=== PATIENT | male | born 1980 | race American Indian/Alaskan Native ===

== ENCOUNTER 2018-09-15 10:29 | Inpatient (IN) | payer OTHER ==
[2018-09-15] MEDS ORDERED: MORPHINE IV ONE (11:45)
[2018-09-15] MEDS ORDERED: NACL 0.9% 1000 ML 1,000 ML IV ONE (11:45)
[2018-09-15] MEDS ORDERED: ZOSYN/NS 4.5GM/100ML 4.5 GM/100 ML VIAL IV ONE (11:47)
[2018-09-15] MEDS ORDERED: XYLOCAINE 1% 20 mL ONE (11:56)
[2018-09-15 12:20] LABS: Mean Corpuscular Volume 88 fl (84-94); Platelet Count 277 K/mm3 (140-440); Red Blood Count 4.33 M/mm3 (3.65-5.03); Red Cell Distribution Width 18.6 % (13.2-15.2)
[2018-09-15 12:27] LABS: Hematocrit 38.3 % (35.5-45.6)
[2018-09-15 12:39] LABS: BUN/Creatinine Ratio 18; Blood Urea Nitrogen 11 mg/dL (9-20); Calcium 9.5 mg/dL (8.4-10.2); Hemolysis Index 11
--- NOTE | 2018-09-15 12:54 | Emergency Department Report ---
<ODALIS BRONSON - Last Filed: 09/15/18 14:04> - General Chief complaint: Wound/Laceration Stated complaint: L HAND INJURY/SWOLLEN Time Seen by Provider: 09/15/18 11:45 - Related Data Home Medications Medication Instructions Recorded Confirmed Last Taken No Known Home Medications [No 09/15/18 09/15/18 Unknown Reported Home Medications] Allergies Allergy/AdvReac Type Severity Reaction Status Date / Time No Known Allergies Allergy Unverified 09/15/18 10:30 Abscess Boil HPI - HPI Chief Complaint: Wound/Laceration Stated Complaint: L HAND INJURY/SWOLLEN Time Seen by Provider: 09/15/18 11:45 Home Medications: Home Medications Medication Instructions Recorded Confirmed Last Taken No Known Home Medications [No 09/15/18 09/15/18 Unknown Reported Home Medications] Allergies/Adverse Reactions: Allergies Allergy/AdvReac Type Severity Reaction Status Date / Time No Known Allergies Allergy Unverified 09/15/18 10:30 ED Past Medical Hx - Medications Home Medications: Home Medications Medication Instructions Recorded Confirmed Last Taken Type No Known Home Medications [No 09/15/18 09/15/18 Unknown History Reported Home Medications] - I & D Left Anterior Hand Type of Procedure: Simple Site: left anterior palm Blade Size: 11 I & D Procedure: betadine prep, sterile drapes applied, sterile dressing applied, gauze wick placed Progress: Patient positioned appropriately, 5cc lidocaine without epinephrine was used as a local anesthetic. #11 blade scalpal used for single incision. Additional local anesthetic injected into surrounding viable tissue prior to blunt dissection of loculated adhesions. Copius drainage of pus. Wound packed with iodoform gauze. Procedure tolerated without complications. Wound dressed with sterile 4x4 guaze and paper tape. Pt tolerated procedure well. ED Medical Decision Making - Lab Data Result diagrams: 09/15/18 12:05 09/15/18 12:05 ED Disposition Clinical Impression: Abscess of hand, left Disposition: DC-09 OP ADMIT IP TO THIS HOSP Condition: Stable <MICH PATTEN - Last Filed: 09/15/18 15:35> - General Source: patient Mode of arrival: Ambulatory Limitations: Other - History of Present Illness Initial comments: 37-year-old male with pain and swelling to the left hand 3 days. 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 Patient states he picked the glass with nail clippers, afterward began having redness, swelling, pain in the hand. Patient denies fever. States he is right- handed. Reports tetanus immunization is up-to-date. MD complaint: abscess/boil -: days(s) (3) Location: R hand Severity: severe Quality: aching Consistency: constant Improves with: none Worsens with: palpation, movement Context: other Associated symptoms: denies other symptoms Treatments Prior to Arrival: none ED Review of Systems ROS: Stated complaint: L HAND INJURY/SWOLLEN Other details as noted in HPI Comment: All other systems reviewed and negative Constitutional: denies: chills, fever Musculoskeletal: as per HPI ED Past Medical Hx - Past Medical History Previous Medical History?: No - Surgical History Past Surgical History?: No - Social History Smoking Status: Current Every Day Smoker Substance Use Type: Marijuana ED Physical Exam - General Limitations: Other General appearance: alert, in no apparent distress - Head Head exam: Present: atraumatic, normocephalic - Eye Eye exam: Present: normal appearance - ENT ENT exam: Present: mucous membranes moist - Neck Neck exam: Present: normal inspection - Respiratory Respiratory exam: Present: normal lung sounds bilaterally. Absent: respiratory distress - Cardiovascular Cardiovascular Exam: Present: normal rhythm, tachycardia - GI/Abdominal GI/Abdominal exam: Present: soft. Absent: distended - Extremities Exam Extremities exam: Present: other (left hand is warm with with moderate swelling; erythema to base of fingers and dorsum of hand; callus-appearing lesion on palmar aspect just below the 5th digit with fluctuance and purulence underlying callus-like lesion) - Neurological Exam Neurological exam: Present: alert, oriented X3. Absent: motor sensory deficit - Psychiatric Psychiatric exam: Present: normal affect, normal mood - Skin Skin exam: Present: warm, dry, intact ED Course Vital Signs 09/15/18 09/15/18 09/15/18 10:37 11:25 13:18 Temperature 98.7 F 98.9 F Pulse Rate 118 H 96 H Respiratory 20 20 18 Rate Blood Pressure 177/120 Blood Pressure 140/80 [Left] O2 Sat by Pulse 98 100 Oximetry ED Medical Decision Making - Lab Data Result diagrams: 09/15/18 12:05 09/15/18 12:05 - Medical Decision Making 37 yo M w/ abscess to left hand. I&D performed. Significant amt of purulence drained from site. Abscess was packed w/ iodoform gauze. Pt afebrile, however, WBCs of 29.5. Vancomycin and zosyn given. Pt will be admitted to hospitalist, Dr Serrano, for further management. - Differential Diagnosis cellulitis, abscess Critical care attestation.: If time is entered above; I have spent that time in minutes in the direct care of this critically ill patient, excluding procedure time. ED Disposition Is pt being admited?: Yes Time of Disposition: 14:17
[2018-09-15 12:59] LABS: Hemoglobin 13.8 gm/dl (11.8-15.2)
[2018-09-15 13:00] LABS: Mean Corpuscular HGB Conc 37 % (32-34)
[2018-09-15 13:29] LABS: Total Cells Counted 100
[2018-09-15 13:30] LABS: Basophils % (Manual) 0 % (0.0-1.8); Eosinophils % (Manual) 0 % (0.0-4.3)
[2018-09-15 13:31] LABS: Anisocytosis Few; Platelet Estimate Consistent w Auto
[2018-09-15] MEDS ORDERED: DILAUDID IV PRN (16:27)
--- NOTE | 2018-09-15 20:34 | Event Note ---
Date: 09/15/18 Please see dictated history and physical in the reports Left hand abscess after injury with a glass piece Status post incision and drainage IV antibiotics Surgery consult
[2018-09-15] MEDS ORDERED: ZOFRAN IV PRN (20:41)
[2018-09-15] MEDS ORDERED: TYLENOL PO PRN (20:41)
[2018-09-15] MEDS ORDERED: SODIUM CHLORIDE FLUSH SYRINGE 10 ML IV PRN (20:41)
[2018-09-15] MEDS ORDERED: VANCOMYCIN PHARMACY TO DOSE IV SCH (21:00)
--- NOTE | 2018-09-15 21:04 | History and Physical Report ---
CHIEF COMPLAINT: Left hand swelling for 3-4 days. HISTORY OF PRESENT ILLNESS: The patient is a 37-year-old -[place] male with no significant past medical history, comes in for left hand swelling and pain. 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 The patient states that he took the glass with the nail clippers. After removal of the glass piece, the patient started having redness, swelling and pain in the hand. Pain in the hand is about 10 on a scale of 1-10. The patient is right handed. The patient had tetanus immunization. Left hand is swollen, especially the palm and the dorsal aspect. Also to some extent the fingers. No fever or chills. PAST MEDICAL HISTORY: Significant for none. PAST SURGICAL HISTORY: I and D in the Emergency Room for the left hand abscess. SOCIAL HISTORY: Smokes over a pack a day and marijuana occasionally. FAMILY HISTORY: Significant for hypertension. REVIEW OF SYSTEMS: Significant for left hand swelling and pain and low-grade fever. PHYSICAL EXAMINATION: GENERAL: Middle-aged male, cooperative during examination. VITAL SIGNS: Blood pressure is 177/120. The repeat blood pressure is 146/90, temperature is 98.7, pulse is 118 and respirations are 20. HEENT: Unremarkable. Pupils are equal and reactive. NECK: Supple. No lymphadenopathy and no thyromegaly. No carotid artery bruit. LUNGS: Clear to auscultation and percussion. Good air entry. CARDIOVASCULAR: S1, S2 heard. No gallop, no murmur, no rub. Apical impulse in left fifth intercostal space and midclavicular line. ABDOMEN: Soft and benign. No hepatosplenomegaly, no guarding, no rigidity. CENTRAL NERVOUS SYSTEM: Alert and oriented x 4, nonfocal exam. EXTREMITIES: Good pedal pulses. Left hand is swollen both the palmar aspect and the dorsal aspect. Severe tenderness is present. Erythema present on the left hand. LABORATORY DATA: Significant for white count of 29,500, hemoglobin and hematocrit of 13.8 and 38.3, platelet count is 277,000. Sodium is 138, potassium is 4.0, chloride is 101, bicarb is 26, BUN and creatinine 11 and 0.6, glucose is 116. ASSESSMENT AND PLAN: 1. Left hand abscess. The patient had incision and drainage done in the Emergency Room by the nurse practitioner. A 20 mL of pus was drained. Incision was made on the medial aspect of the left hand on the palmar aspect and in the middle of the hand. A 2 cm incision was made, 20 mL of pus was drained. The patient initiated on IV antibiotics, IV Unasyn and IV vancomycin. Also, pain controlled. 2. Nicotine dependence. The patient counseled. Nicoderm patch initiated. 3. Deep venous thrombosis prophylaxis, Lovenox 40 mg subcutaneous daily. Surgical consult requested for the incision and drainage. 4. Leukocytosis secondary to possible bacteremia and sepsis. We will monitor the white blood count. The patient on IV antibiotics for now. JOB# [id number] FABIEN/NEENA
[2018-09-15] MEDS ORDERED: VANCOMYCIN 1,500 MG in NACL 0.9% 500 ML 500 ML IV ONE (22:00)
[2018-09-15] MEDS: NACL 0.45% 1000 ML 1,000 ML IV SCH (22:05)
[2018-09-15] MEDS: HABITROL TD SCH (22:06)
[2018-09-15] MEDS: SODIUM CHLORIDE FLUSH SYRINGE 10 ML IV SCH (22:06)
[2018-09-15] MEDS: LOVENOX SUB-Q SCH (22:06)
[2018-09-15] MEDS: PEPCID IV SCH (22:06)
[2018-09-15] MEDS: PERCOCET 5/325 PO PRN (22:16)
[2018-09-16] MEDS: UNASYN/NS 3 GM/100 ML 3 GM/100 ML BAG IV SCH ×6 (00:55→23:50)
[2018-09-16 06:24] LABS: BUN/Creatinine Ratio 25; Blood Urea Nitrogen 10 mg/dL (9-20); Calcium 8.8 mg/dL (8.4-10.2); Hemolysis Index 16
[2018-09-16 06:51] LABS: Alanine Aminotransferase 8 units/L (7-56)
[2018-09-16 09:08] LABS: Mean Corpuscular Volume 87 fl (84-94); Platelet Count 217 K/mm3 (140-440); Red Blood Count 3.53 M/mm3 (3.65-5.03)
[2018-09-16 09:19] LABS: Hematocrit 30.8 % (35.5-45.6); Hemoglobin 11.8 gm/dl (11.8-15.2)
[2018-09-16 09:21] LABS: Mean Corpuscular HGB Conc 38 % (32-34)
[2018-09-16] MEDS ORDERED: VANCOMYCIN 1,250 MG in NACL 0.9% 250ML 250 ML IV SCH (10:00)
[2018-09-16 11:19] LABS: Eosinophils % (Manual) 0 % (0.0-4.3); Total Cells Counted 100
[2018-09-16 11:20] LABS: Anisocytosis Few; Basophils % (Manual) 0 % (0.0-1.8); Platelet Estimate Consistent w Auto
[2018-09-16] MEDS: HABITROL TD SCH (12:27)
[2018-09-16] MEDS: SODIUM CHLORIDE FLUSH SYRINGE 10 ML IV SCH ×2 (12:28→22:34)
[2018-09-16] MEDS: PEPCID IV SCH ×2 (12:34→22:34)
[2018-09-16] MEDS: VANCOMYCIN/NS 1 GM/250 ML 1 GM/250 ML BAG IV SCH ×2 (13:52→23:51)
[2018-09-16] MEDS: NACL 0.45% 1000 ML 1,000 ML IV SCH (13:56)
[2018-09-16] MEDS: PERCOCET 5/325 PO PRN (14:00)
--- NOTE | 2018-09-16 15:22 | Progress Note ---
Assessment and Plan Assessment and plan: Patient is a 37 yo man with a history of tobacco dependency and marijuana use who presents to [facility] ED with left hand swelling. 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 Patient states he picked the glass with nail clippers, afterward began having redness, swelling, pain in the hand. Patient denies fever. States he is right-handed. Reports tetanus immunization is up-to-date. I&D performed. Significant amount of purulence drained from site. Abscess was packed w/ iodoform gauze. Pt afebrile, however, WBCs of 29.5. Vancomycin and zosyn given. Pt admitted to hospitalist, Dr Serrano, for further management. Sepsis with Left hand cellulitis with abscess s/p I-n-D in ED: follow cultures, consult ID, no Hand surgeon available here and Ortho here does not handle and he has no insurance so the likely bower for transfer to Hand surgeon from the floor is almost impossible. Also, given the fact that no imaging was done. So, consult ID and wound care and follow culture and treat with IV abx Tobacco dependency: equal opportunity counselor on stopping, he has nicotine patch I called [facility] transfer line [phone] spoke with Nataly, they are on "med surg saturation, try back tomorrow"; Then I called [facility] transfer services at [phone] and spoke with Misti Recinos. most hand problem go to [facility] and she asked if I called [facility] which I had. She will call me back. History Interval history: Patient was seen and examined. Follow-up on current diagnosis of Hand infection. No overnight events reported to me. Patient denies any chest pain, shortness breath, nausea/vomiting or severe headaches. Imaging, nursing note, chart, labs and old chart reviewed. Discussed with patient. Hospitalist Physical - Physical exam Narrative exam: Gen: WDWN, NAD, Awake, Alert, Orientated HEENT: NCAT, EOMI, PERRL, OP Clear Neck: supple, no adenopathy, no thyromegaly, no JVD CVS/Heart: RRR, normal S1S2, pulses present bilaterally Chest/Lungs: CTA B, Symmetrical chest expansion, good air entry bilaterally GI/Abdomen: soft, NTND, good bowel sounds, no guarding or rebound /Bladder: no suprapubic tenderness, no CVA or paraspinal tenderness Extermity/Skin: abnormal left hand which is edematous, red, warm, erythematous and tender, the erythema extend to base of fingers and dorsum of hand; callus- appearing lesion on palmar aspect just below the 5th digit with fluctuance and purulence underlying callus-like lesion drained MSK: FROM x 4 Neuro: CN 2-12 grossly intact, no new focal deficits Psych: calm - Constitutional Vitals: Temp Pulse Resp BP Pulse Ox 99.2 F 84 18 130/71 100 09/16/18 11:45 09/16/18 11:45 09/16/18 11:45 09/16/18 11:45 09/16/18 11:45 Results - Labs CBC & Chem 7: 09/16/18 05:13 09/16/18 05:13 Labs: Laboratory Last Values WBC 22.7 K/mm3 (4.5-11.0) H 09/16/18 05:13 RBC 3.53 M/mm3 (3.65-5.03) L 09/16/18 05:13 Hgb 11.8 gm/dl (11.8-15.2) 09/16/18 05:13 Hct 30.8 % (35.5-45.6) L D 09/16/18 05:13 MCV 87 fl (84-94) 09/16/18 05:13 MCH 33 pg (28-32) H 09/16/18 05:13 MCHC 38 % (32-34) H* 09/16/18 05:13 RDW 19.0 % (13.2-15.2) H 09/16/18 05:13 Plt Count 217 K/mm3 (140-440) 09/16/18 05:13 Add Manual Diff Complete 09/16/18 05:13 Total Counted 100 09/16/18 05:13 Seg Neuts % (Manual) 71.0 % (40.0-70.0) H 09/16/18 05:13 0 % 09/16/18 05:13 22.0 % (13.4-35.0) 09/16/18 05:13 Reactive Lymphs % (Man) 0 % 09/16/18 05:13 7.0 % (0.0-7.3) 09/16/18 05:13 0 % (0.0-4.3) 09/16/18 05:13 0 % (0.0-1.8) 09/16/18 05:13 0 % 09/16/18 05:13 0 % 09/16/18 05:13 0 % 09/16/18 05:13 0 % 09/16/18 05:13 Nucleated RBC % Not Reportable 09/16/18 05:13 Seg Neutrophils # Man 16.1 K/mm3 (1.8-7.7) H 09/16/18 05:13 Band Neutrophils # 0.0 K/mm3 09/16/18 05:13 5.0 K/mm3 (1.2-5.4) 09/16/18 05:13 Abs React Lymphs (Man) 0.0 K/mm3 09/16/18 05:13 1.6 K/mm3 (0.0-0.8) H 09/16/18 05:13 0.0 K/mm3 (0.0-0.4) 09/16/18 05:13 0.0 K/mm3 (0.0-0.1) 09/16/18 05:13 0.0 K/mm3 09/16/18 05:13 0.0 K/mm3 09/16/18 05:13 0.0 K/mm3 09/16/18 05:13 Blast Cells # 0.0 K/mm3 09/16/18 05:13 WBC Morphology Not Reportable 09/16/18 05:13 Hypersegmented Neuts Not Reportable 09/16/18 05:13 Hyposegmented Neuts Not Reportable 09/16/18 05:13 Hypogranular Neuts Not Reportable 09/16/18 05:13 Not Reportable 09/16/18 05:13 Not Reportable 09/16/18 05:13 Not Reportable 09/16/18 05:13 Not Reportable 09/16/18 05:13 Not Reportable 09/16/18 05:13 Not Reportable 09/16/18 05:13 Consistent w auto 09/16/18 05:13 Not Reportable 09/16/18 05:13 Plt Clumps, EDTA Not Reportable 09/16/18 05:13 Not Reportable 09/16/18 05:13 Not Reportable 09/16/18 05:13 Not Reportable 09/16/18 05:13 Plt Morphology Comment Not Reportable 09/16/18 05:13 RBC Morphology Not Reportable 09/16/18 05:13 Dimorphic RBCs Not Reportable 09/16/18 05:13 Not Reportable 09/16/18 05:13 Not Reportable 09/16/18 05:13 Not Reportable 09/16/18 05:13 Few 09/16/18 05:13 Not Reportable 09/16/18 05:13 Not Reportable 09/16/18 05:13 Not Reportable 09/16/18 05:13 Not Reportable 09/16/18 05:13 Not Reportable 09/16/18 05:13 Not Reportable 09/16/18 05:13 Not Reportable 09/16/18 05:13 Not Reportable 09/16/18 05:13 Not Reportable 09/16/18 05:13 Not Reportable 09/16/18 05:13 Not Reportable 09/16/18 05:13 Not Reportable 09/16/18 05:13 Not Reportable 09/16/18 05:13 Not Reportable 09/16/18 05:13 Not Reportable 09/16/18 05:13 Acanthocytes (Spur) Not Reportable 09/16/18 05:13 Rouleaux Not Reportable 09/16/18 05:13 Not Reportable 09/16/18 05:13 Not Reportable 09/16/18 05:13 Not Reportable 09/16/18 05:13 Not Reportable 09/16/18 05:13 Hem Pathologist Commnt No 09/16/18 05:13 Sodium 138 mmol/L (137-145) 09/16/18 05:13 Potassium 3.8 mmol/L (3.6-5.0) 09/16/18 05:13 Chloride 102.2 mmol/L (98-107) 09/16/18 05:13 Carbon Dioxide 26 mmol/L (22-30) 09/16/18 05:13 14 mmol/L 09/16/18 05:13 BUN 10 mg/dL (9-20) 09/16/18 05:13 0.4 mg/dL (0.8-1.5) L 09/16/18 05:13 Estimated GFR > 60 ml/min 09/16/18 05:13 25 % 09/16/18 05:13 Glucose 102 mg/dL (75-100) H 09/16/18 05:13 Calcium 8.8 mg/dL (8.4-10.2) 09/16/18 05:13 4.50 mg/dL (0.1-1.2) H 09/16/18 05:13 AST 13 units/L (5-40) 09/16/18 05:13 ALT 8 units/L (7-56) 09/16/18 05:13 91 units/L (35-129) 09/16/18 05:13 7.6 g/dL (6.3-8.2) 09/16/18 05:13 4.0 g/dL (3.9-5) 09/16/18 05:13 1.1 % 09/16/18 05:13 Active Medications - Current Medications Current Medications: Generic Name Dose Route Start Last Admin Trade Name Freq PRN Reason Stop Dose Admin Acetaminophen 650 mg 09/15/18 20:41 09/16/18 00:53 Tylenol PO 650 mg Q4H PRN Administration Pain MILD(1-3)/Fever >100.5/VANESSA Enoxaparin Sodium 40 mg 09/15/18 22:00 09/15/18 22:06 Lovenox SUB-Q 40 mg QDAY@2200 MARTHA Administration Famotidine 20 mg 09/15/18 22:00 09/16/18 12:34 Pepcid IV 20 mg BID MARTHA Administration Hydromorphone HCl 0.5 mg 09/15/18 16:27 Dilaudid IV Q3H PRN Pain , Severe (7-10) Sodium Chloride 1,000 mls @ 75 mls/hr 09/15/18 21:00 09/16/18 13:56 Nacl 0.45% 1000 Ml IV 75 mls/hr DIRECT MARTHA Administration Ampicillin Sodium/Sulbactam Sodium 3 gm in 100 mls @ 100 mls/hr 09/16/18 00:00 09/16/18 12:22 Unasyn/Ns 3 Gm/100 Ml IV 100 mls/hr Q6HR MARTHA Administration Protocol Vancomycin HCl 1 gm in 250 mls @ 166.667 mls/hr 09/16/18 12:30 09/16/18 13:52 Vancomycin/Ns 1 Gm/250 Ml IV 166.667 mls/hr Q8HR MARTHA Administration Nicotine 21 mg 09/15/18 22:00 09/16/18 12:27 Habitrol TD 21 mg QDAY MARTHA Administration Ondansetron HCl 4 mg 09/15/18 20:41 Zofran IV Q8H PRN Nausea And Vomiting Oxycodone/Acetaminophen 1 tab 09/15/18 20:41 09/16/18 14:00 Percocet 5/325 PO 1 tab Q6H PRN Administration Pain, Moderate (4-6) Sodium Chloride 10 ml 09/15/18 22:00 09/16/18 12:28 Sodium Chloride Flush Syringe 10 Ml IV 10 ml BID MARTHA Administration Sodium Chloride 10 ml 09/15/18 20:41 Sodium Chloride Flush Syringe 10 Ml IV PRN PRN LINE FLUSH
[2018-09-16] MEDS: LOVENOX SUB-Q SCH (22:34)
[2018-09-17] MEDS: NACL 0.45% 1000 ML 1,000 ML IV SCH (05:35)
[2018-09-17] MEDS: UNASYN/NS 3 GM/100 ML 3 GM/100 ML BAG IV SCH ×3 (05:40→17:31)
[2018-09-17] MEDS: VANCOMYCIN/NS 1 GM/250 ML 1 GM/250 ML BAG IV SCH ×2 (09:05→13:26)
[2018-09-17] MEDS: PEPCID IV SCH (10:21)
[2018-09-17] MEDS: HABITROL TD SCH (10:22)
[2018-09-17] MEDS: SODIUM CHLORIDE FLUSH SYRINGE 10 ML IV SCH ×2 (10:22→23:49)
[2018-09-17] MEDS: PERCOCET 5/325 PO PRN ×2 (10:29→20:11)
--- NOTE | 2018-09-17 10:55 | Consultation ---
History of Present Illness - HPI Consult date: 09/16/18 Consult reason: other History of present illness: 37-year-old male who came in complaining of right hand pain and swelling patient states he was at work when he was picking up an object and accidentally cut himself on on broken glass patient states that over the course of the next several days the hand became worse to the point where he came to the emergency department at [facility]. Patient was diagnosed with an abscess right hand and underwent incision and drainage he was also placed on IV antibiotics. Currently patient states the pain is much better now than before Medications and Allergies Allergies Allergy/AdvReac Type Severity Reaction Status Date / Time No Known Allergies Allergy Unverified 09/15/18 10:30 Home Medications Medication Instructions Recorded Confirmed Last Taken Type No Known Home Medications [No 09/15/18 09/15/18 Unknown History Reported Home Medications] Active Meds: Active Medications Acetaminophen (Tylenol) 650 mg PO Q4H PRN PRN Reason: Pain MILD(1-3)/Fever >100.5/VANESSA Last Admin: 09/16/18 00:53 Dose: 650 mg Documented by: Enoxaparin Sodium (Lovenox) 40 mg SUB-Q QDAY@2200 MARTHA Last Admin: 09/16/18 22:34 Dose: 40 mg Documented by: Famotidine (Pepcid) 20 mg IV BID [facility] Last Admin: 09/17/18 10:21 Dose: 20 mg Documented by: Hydromorphone HCl (Dilaudid) 0.5 mg IV Q3H PRN PRN Reason: Pain , Severe (7-10) Last Admin: 09/17/18 05:36 Dose: 0.5 mg Documented by: Sodium Chloride (Nacl 0.45% 1000 Ml) 1,000 mls @ 75 mls/hr IV DIRECT [facility] Last Infusion: 09/17/18 06:40 Dose: 75 mls/hr Documented by: Ampicillin Sodium/Sulbactam Sodium (Unasyn/Ns 3 Gm/100 Ml) 3 gm in 100 mls @ 100 mls/hr IV Q6HR [facility]; Protocol Last Admin: 09/17/18 05:40 Dose: 100 mls/hr Documented by: Vancomycin HCl (Vancomycin/Ns 1 Gm/250 Ml) 1 gm in 250 mls @ 166.667 mls/hr IV Q8HR [facility] Last Admin: 09/17/18 09:05 Dose: 166.667 mls/hr Documented by: Nicotine (Habitrol) 21 mg TD QDAY [facility] Last Admin: 09/17/18 10:22 Dose: 21 mg Documented by: Ondansetron HCl (Zofran) 4 mg IV Q8H PRN PRN Reason: Nausea And Vomiting Oxycodone/Acetaminophen (Percocet 5/325) 1 tab PO Q6H PRN PRN Reason: Pain, Moderate (4-6) Last Admin: 09/17/18 10:29 Dose: 1 tab Documented by: Sodium Chloride (Sodium Chloride Flush Syringe 10 Ml) 10 ml IV BID [facility] Last Admin: 09/17/18 10:22 Dose: 10 ml Documented by: Sodium Chloride (Sodium Chloride Flush Syringe 10 Ml) 10 ml IV PRN PRN PRN Reason: LINE FLUSH Physical Examination - Physical exam Narrative exam: At the right hand patient was noted to have moderate swelling along the ulnar border of the hand there is minimal drainage noted on the dressings patient able to move all digits there is good capillary refill Eyes: PERRL ENT: Positive: clear oral mucosa Respiratory effort: normal Respiratory: bilateral: CTA Rhythm: regular Heart Sounds: Positive: S1 & S2 General gastrointestinal: Positive: soft, non-tender, non-distended, normal bowel sounds Integumentary: clear, warm, dry Neurologic: Positive: CNII-XII intact, moves all extremities, gait normal. Negative: focal deficits Assessment and Plan Abscess right hand status post incision and drainage Recommend continuing elevation and antibiotics patient can be discharged with follow-up appointment in my office within 3-5 days
--- NOTE | 2018-09-17 12:29 | XRay Report ---
LEFT HAND, 2 VIEWS INDICATION: Possible glass in left hand, pain and swelling.. COMPARISON: None. IMPRESSION: There is mild diffuse soft tissue swelling. The bony structures and joint spaces are int act. No radiopaque foreign body is identified on x-ray. Laceration on the palm of the hand is suspect ed. Signer Name: Brown Coronado Jr, MD Signed: 09/17/2018 12:25 PM Workstation Name: [id number]
--- NOTE | 2018-09-17 13:54 | Consultation ---
History of Present Illness - Reason for Consult Consult date: 09/17/18 left hand cellulitis / abscess Requesting physician: DELFINO YANCEY - History of Present Illness 37 y/o male with history of tobacco abuse admitted on 09/15/2018 due to a week history of left hand swelling and pain. 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 Patient states he picked the glass with nail clippers, and 2 days later he noted severe edema, erythema and tenderness. Tetanus immunization is up-to-date. Denies fever. In the ED, temp 98.7-101.1, HR 118, R20, BP 99, BP 177/120. WBC 29. Creat 0.6. I&D performed. Significant amount of purulence drained from site. Abscess was packed. ID consulted for further management. Review of Systems: General: no fever, chills, no malaise Cutaneous: no rash, pruritus Head: no headaches or injury Eyes: no changes in vision, eye pain, double vision Ears: no ear pain, ear discharge, ringing or hearing loss Nose: no nose bleeding, stuffiness Mouth & throat: no bleeding gums, no horseness, no dental problems, or swollen glands Neck: no pain, node enlargement/lumps, tyroid enlargement or tenderness Respiratory: no cough, wheezing, sputum, hemoptysis, pleuritic chest pain Cardiovascular: no chest pain, leg edema, cyanosis, [place], orthopnea Musculoskeletal: +left hand edema, erythema Gastrointestinal: no nausea, vomiting, no hematemesis, diarrhea, constipation, melena, bright red blood in stools, fecal incontinence, jaundice Genitourinary/Reproductive:no frequent urination, dysuria, hematuria, incontinence Neurogical: no seizures, no headaches, no weakness, no paresthesias, no loss of speech or vision; no memory loss, no vertigo, no tremors, no numbness Psychiatric: stable mood; no excessive anxiety, sadness or moodiness Medications and Allergies Allergies Allergy/AdvReac Type Severity Reaction Status Date / Time No Known Allergies Allergy Unverified 09/15/18 10:30 Home Medications Medication Instructions Recorded Confirmed Last Taken Type No Known Home Medications [No 09/15/18 09/15/18 Unknown History Reported Home Medications] Active Meds: Active Medications Acetaminophen (Tylenol) 650 mg PO Q4H PRN PRN Reason: Pain MILD(1-3)/Fever >100.5/VANESSA Last Admin: 09/16/18 00:53 Dose: 650 mg Documented by: Enoxaparin Sodium (Lovenox) 40 mg SUB-Q QDAY@2200 MARTHA Last Admin: 09/16/18 22:34 Dose: 40 mg Documented by: Famotidine (Pepcid) 20 mg PO BID [facility] Hydromorphone HCl (Dilaudid) 0.5 mg IV Q3H PRN PRN Reason: Pain , Severe (7-10) Last Admin: 09/17/18 05:36 Dose: 0.5 mg Documented by: Sodium Chloride (Nacl 0.45% 1000 Ml) 1,000 mls @ 75 mls/hr IV DIRECT [facility] Last Infusion: 09/17/18 06:40 Dose: 75 mls/hr Documented by: Ampicillin Sodium/Sulbactam Sodium (Unasyn/Ns 3 Gm/100 Ml) 3 gm in 100 mls @ 100 mls/hr IV Q6HR [facility]; Protocol Last Admin: 09/17/18 13:26 Dose: 100 mls/hr Documented by: Vancomycin HCl (Vancomycin/Ns 1 Gm/250 Ml) 1 gm in 250 mls @ 166.667 mls/hr IV Q8HR [facility] Last Admin: 09/17/18 13:26 Dose: 166.667 mls/hr Documented by: Nicotine (Habitrol) 21 mg TD QDAY [facility] Last Admin: 09/17/18 10:22 Dose: 21 mg Documented by: Ondansetron HCl (Zofran) 4 mg IV Q8H PRN PRN Reason: Nausea And Vomiting Oxycodone/Acetaminophen (Percocet 5/325) 1 tab PO Q6H PRN PRN Reason: Pain, Moderate (4-6) Last Admin: 09/17/18 10:29 Dose: 1 tab Documented by: Sodium Chloride (Sodium Chloride Flush Syringe 10 Ml) 10 ml IV BID [facility] Last Admin: 09/17/18 10:22 Dose: 10 ml Documented by: Sodium Chloride (Sodium Chloride Flush Syringe 10 Ml) 10 ml IV PRN PRN PRN Reason: LINE FLUSH Physical Examination - Physical Exam Narrative exam: General appearance: Alert in NAD Eyes: anicteric sclerae, moist conjunctivae; no lid-lag; PERRLA HENT: Atraumatic; oropharynx clear with moist mucous membranes and no mucosal ulcerations/no oral thrush; normal hard and soft palate. Normal external ears. Neck: Trachea midline; supple, no thyromegaly or lymphadenopathy Lungs: CTA, with normal respiratory effort and no intercostal retractions CV: RRR no murmur Abdomen: Soft, non-tender; no masses or hepatosplenomegaly Extremities: marked edema of left hand with open wound packed and erythema, edema spread to forearm and elbow. Skin: Normal temperature, turgor and texture; no rash, ulcers or subcutaneous nodules Psych: Appropriate affect, alert and oriented to person, place and time. Neuro: alert and oriented x 3. Moving all extermities - Constitutional Vitals: Vital Signs Temp Pulse Resp BP Pulse Ox 98.8 F 74 20 120/77 98 09/17/18 12:18 09/17/18 12:18 09/17/18 12:18 09/17/18 12:18 09/17/18 12:18 Temperature -Last 24 Hours Temperature 98.8 F Temperature 98.2 F Temperature 98.6 F Temperature 98.5 F Results - Labs CBC & Chem 7: 09/16/18 05:13 09/16/18 05:13 Assessment and Plan Cultures: none Assessment: 37 y/o male with history of tobacco abuse admitted on 09/15/2018 due to a week history of left hand swelling and pain after a piece of glass got stuck his hand. 1) Severe Sepsis: Present on admission, manifested by fever, leukocytosis. Etiology most likely left hand post-traumatic abscess 2) Left hand post-traumatic abscess: ? infectious tenosynovitis. S/p I&D performed. Significant amount of purulence drained from site. Abscess was packed. No cultures available. Recommendations: - follow-up blood cultures, urine culture - left hand CT - wound cultures stat - blood cultures stat - continue unasyn IV and vancomycin IV - CRP Will follow. Yin Villasenor MD Infectious Diseases Watch Dial [employer] [facility] M [phone] O [phone]
--- NOTE | 2018-09-17 14:56 | Progress Note ---
Assessment and Plan Assessment and plan: Patient is a 37 yo man with a history of tobacco dependency and marijuana use who presents to [facility] ED with left hand swelling. 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 Patient states he picked the glass with nail clippers, afterward began having redness, swelling, pain in the hand. Patient denies fever. States he is right-handed. Reports tetanus immunization is up-to-date. I&D performed. Significant amount of purulence drained from site. Abscess was packed w/ iodoform gauze. Pt afebrile, however, WBCs of 29.5. Vancomycin and zosyn given. Pt admitted to hospitalist, Dr Serrano, for further management. Sepsis with Left hand cellulitis with abscess s/p I-n-D in ED: follow cultures, consult ID, no Hand surgeon available here and Ortho here does not handle and he has no insurance so the likely bower for transfer to Hand surgeon from the floor is almost impossible. Also, given the fact that no imaging was done. 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 most hand problem go to [facility] and she asked if I called [facility] which I had. She called me back with hand specialist Dr. Jp Gibbons and he gave me his cell phone number if Dr. Hammond thinks pt needs transfer, in which I spoke with Dr. Hammond and he did not feel patient needs transfer. History Interval history: Patient was seen and examined. Follow-up on current diagnosis of left Hand infection. No overnight events reported to me. Patient denies any chest pain, shortness breath, nausea/vomiting or severe headaches. Imaging, nursing note, chart, labs and old chart reviewed. Discussed with patient. Hospitalist Physical - Physical exam Narrative exam: Gen: WDWN, NAD, Awake, Alert, Orientated HEENT: NCAT, EOMI, PERRL, OP Clear Neck: supple, no adenopathy, no thyromegaly, no JVD CVS/Heart: RRR, normal S1S2, pulses present bilaterally Chest/Lungs: CTA B, Symmetrical chest expansion, good air entry bilaterally GI/Abdomen: soft, NTND, good bowel sounds, no guarding or rebound /Bladder: no suprapubic tenderness, no CVA or paraspinal tenderness Extermity/Skin: abnormal left palmar hand quarter size crater with packing below the pinky finger, which is edematous, red, warm, erythematous and tender, the erythema extend to base of fingers and dorsum of hand; callus-appearing lesion on palmar aspect just below the 5th digit with fluctuance and purulence underlying callus-like lesion drained MSK: FROM x 4 Neuro: CN 2-12 grossly intact, no new focal deficits Psych: calm - Constitutional Vitals: Temp Pulse Resp BP Pulse Ox 98.8 F 74 20 120/77 98 09/17/18 12:18 09/17/18 12:18 09/17/18 12:18 09/17/18 12:18 09/17/18 12:18 Results - Labs CBC & Chem 7: 09/16/18 05:13 09/16/18 05:13 Labs: Laboratory Last Values WBC 22.7 K/mm3 (4.5-11.0) H 09/16/18 05:13 RBC 3.53 M/mm3 (3.65-5.03) L 09/16/18 05:13 Hgb 11.8 gm/dl (11.8-15.2) 09/16/18 05:13 Hct 30.8 % (35.5-45.6) L D 09/16/18 05:13 MCV 87 fl (84-94) 09/16/18 05:13 MCH 33 pg (28-32) H 09/16/18 05:13 MCHC 38 % (32-34) H* 09/16/18 05:13 RDW 19.0 % (13.2-15.2) H 09/16/18 05:13 Plt Count 217 K/mm3 (140-440) 09/16/18 05:13 Add Manual Diff Complete 09/16/18 05:13 Total Counted 100 09/16/18 05:13 Seg Neuts % (Manual) 71.0 % (40.0-70.0) H 09/16/18 05:13 0 % 09/16/18 05:13 22.0 % (13.4-35.0) 09/16/18 05:13 Reactive Lymphs % (Man) 0 % 09/16/18 05:13 7.0 % (0.0-7.3) 09/16/18 05:13 0 % (0.0-4.3) 09/16/18 05:13 0 % (0.0-1.8) 09/16/18 05:13 0 % 09/16/18 05:13 0 % 09/16/18 05:13 0 % 09/16/18 05:13 0 % 09/16/18 05:13 Nucleated RBC % Not Reportable 09/16/18 05:13 Seg Neutrophils # Man 16.1 K/mm3 (1.8-7.7) H 09/16/18 05:13 Band Neutrophils # 0.0 K/mm3 09/16/18 05:13 5.0 K/mm3 (1.2-5.4) 09/16/18 05:13 Abs React Lymphs (Man) 0.0 K/mm3 09/16/18 05:13 1.6 K/mm3 (0.0-0.8) H 09/16/18 05:13 0.0 K/mm3 (0.0-0.4) 09/16/18 05:13 0.0 K/mm3 (0.0-0.1) 09/16/18 05:13 0.0 K/mm3 09/16/18 05:13 0.0 K/mm3 09/16/18 05:13 0.0 K/mm3 09/16/18 05:13 Blast Cells # 0.0 K/mm3 09/16/18 05:13 WBC Morphology Not Reportable 09/16/18 05:13 Hypersegmented Neuts Not Reportable 09/16/18 05:13 Hyposegmented Neuts Not Reportable 09/16/18 05:13 Hypogranular Neuts Not Reportable 09/16/18 05:13 Not Reportable 09/16/18 05:13 Not Reportable 09/16/18 05:13 Not Reportable 09/16/18 05:13 Not Reportable 09/16/18 05:13 Not Reportable 09/16/18 05:13 Not Reportable 09/16/18 05:13 Consistent w auto 09/16/18 05:13 Not Reportable 09/16/18 05:13 Plt Clumps, EDTA Not Reportable 09/16/18 05:13 Not Reportable 09/16/18 05:13 Not Reportable 09/16/18 05:13 Not Reportable 09/16/18 05:13 Plt Morphology Comment Not Reportable 09/16/18 05:13 RBC Morphology Not Reportable 09/16/18 05:13 Dimorphic RBCs Not Reportable 09/16/18 05:13 Not Reportable 09/16/18 05:13 Not Reportable 09/16/18 05:13 Not Reportable 09/16/18 05:13 Few 09/16/18 05:13 Not Reportable 09/16/18 05:13 Not Reportable 09/16/18 05:13 Not Reportable 09/16/18 05:13 Not Reportable 09/16/18 05:13 Not Reportable 09/16/18 05:13 Not Reportable 09/16/18 05:13 Not Reportable 09/16/18 05:13 Not Reportable 09/16/18 05:13 Not Reportable 09/16/18 05:13 Not Reportable 09/16/18 05:13 Not Reportable 09/16/18 05:13 Not Reportable 09/16/18 05:13 Not Reportable 09/16/18 05:13 Not Reportable 09/16/18 05:13 Not Reportable 09/16/18 05:13 Acanthocytes (Spur) Not Reportable 09/16/18 05:13 Rouleaux Not Reportable 09/16/18 05:13 Not Reportable 09/16/18 05:13 Not Reportable 09/16/18 05:13 Not Reportable 09/16/18 05:13 Not Reportable 09/16/18 05:13 Hem Pathologist Commnt No 09/16/18 05:13 Sodium 138 mmol/L (137-145) 09/16/18 05:13 Potassium 3.8 mmol/L (3.6-5.0) 09/16/18 05:13 Chloride 102.2 mmol/L (98-107) 09/16/18 05:13 Carbon Dioxide 26 mmol/L (22-30) 09/16/18 05:13 14 mmol/L 09/16/18 05:13 BUN 10 mg/dL (9-20) 09/16/18 05:13 0.4 mg/dL (0.8-1.5) L 09/16/18 05:13 Estimated GFR > 60 ml/min 09/16/18 05:13 25 % 09/16/18 05:13 Glucose 102 mg/dL (75-100) H 09/16/18 05:13 Calcium 8.8 mg/dL (8.4-10.2) 09/16/18 05:13 4.50 mg/dL (0.1-1.2) H 09/16/18 05:13 AST 13 units/L (5-40) 09/16/18 05:13 ALT 8 units/L (7-56) 09/16/18 05:13 91 units/L (35-129) 09/16/18 05:13 7.6 g/dL (6.3-8.2) 09/16/18 05:13 4.0 g/dL (3.9-5) 09/16/18 05:13 1.1 % 09/16/18 05:13 Active Medications - Current Medications Current Medications: Generic Name Dose Route Start Last Admin Trade Name Freq PRN Reason Stop Dose Admin Acetaminophen 650 mg 09/15/18 20:41 09/16/18 00:53 Tylenol PO 650 mg Q4H PRN Administration Pain MILD(1-3)/Fever >100.5/VANESSA Enoxaparin Sodium 40 mg 09/15/18 22:00 09/16/18 22:34 Lovenox SUB-Q 40 mg QDAY@2200 MARTHA Administration Famotidine 20 mg 09/17/18 22:00 Pepcid PO BID MARTHA Hydromorphone HCl 0.5 mg 09/15/18 16:27 09/17/18 05:36 Dilaudid IV 0.5 mg Q3H PRN Administration Pain , Severe (7-10) Sodium Chloride 1,000 mls @ 75 mls/hr 09/15/18 21:00 09/17/18 06:40 Nacl 0.45% 1000 Ml IV 75 mls/hr DIRECT MARTHA Infusion Ampicillin Sodium/Sulbactam Sodium 3 gm in 100 mls @ 100 mls/hr 09/16/18 00:00 09/17/18 13:26 Unasyn/Ns 3 Gm/100 Ml IV 100 mls/hr Q6HR MARTHA Administration Protocol Vancomycin HCl 1 gm in 250 mls @ 166.667 mls/hr 09/16/18 12:30 09/17/18 13:26 Vancomycin/Ns 1 Gm/250 Ml IV 166.667 mls/hr Q8HR MARTHA Administration Nicotine 21 mg 09/15/18 22:00 09/17/18 10:22 Habitrol TD 21 mg QDAY MARTHA Administration Ondansetron HCl 4 mg 09/15/18 20:41 Zofran IV Q8H PRN Nausea And Vomiting Oxycodone/Acetaminophen 1 tab 09/15/18 20:41 09/17/18 10:29 Percocet 5/325 PO 1 tab Q6H PRN Administration Pain, Moderate (4-6) Sodium Chloride 10 ml 09/15/18 22:00 09/17/18 10:22 Sodium Chloride Flush Syringe 10 Ml IV 10 ml BID MARTHA Administration Sodium Chloride 10 ml 09/15/18 20:41 Sodium Chloride Flush Syringe 10 Ml IV PRN PRN LINE FLUSH Nutrition/Malnutrition Assess - Dietary Evaluation Nutrition/Malnutrition Findings: Nutrition Notes Start: 09/16/18 15:48 Freq: Status: Active Protocol: Document 09/16/18 15:48 RM (Rec: 09/16/18 15:59 RM [id number]) Nutrition Notes Need for Assessment generated from: MD Order Initial or Follow up Assessment Other Pertinent Diagnosis L hand abscess Current Diet Regular w/Ensure Enlive [place] Labs/Tests Reviewed Pertinent Medications Reviewed Height 5 ft 10 in Weight 69.7 kg Usual Body Weight 75 kg [place] Body Weight (kg) 75.45 BMI 22.0 Weight change and time frame 7.06% wt loss X 1 month Subjective/Other Information Consulted for poor appetite. Screened for malnutrition. 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 Stated that his appetite is good now. Also stated that he drinks the Ensure Enlive. Stated UBW was 165 lbs 1 month ago. No temporal or orbital wasting . Burn Absent Trauma Absent #1 Nutrition Diagnosis Malnutrition Etiology decreased appetite As Evidenced by Signs and Symptoms 7.06% wt loss X 1 month, pt statement that PULMONARY PHYSICIAN he was eating small amounts of food Is patient on ventilator? No Is Patient Ambulatory and/or Out of Bed Yes REE-([facility]-ambulatory/OOB) [ 2123.225 [id number]] Calculation Used for Recommendations [facility] Additional Notes Protein Needs: 84-105g (1.2-1. 5g/kg) Fluid Needs: 1 ml/kcal Nutrition Intervention Change Diet Order: Continue current Add Supplement/Snack (indicate name/kcal Ensure Enlive [place] 1 /protein ) daily Provides kCal: 350 Provides Protein (gm) 20 Goal #1 Wt maintenance Follow-Up By: 09/21/18 Additional Comments Follow for PO and ONS intakes, stable wt
--- NOTE | 2018-09-17 22:27 | Cat Scan Report ---
CT upper extrem LT w con INDICATION: left hand abscess eval for tenosynovitis/gas/. TECHNIQUE: All CT scans at this location are performed using the following dose modulation technique: Automated exposure control. COMPARISON: Radiographs earlier the same day. FINDINGS: There is no acute/significant skeletal abnormality. Within the superficial soft tissues along the volar aspect of the hand at the level of the little fin chevy MCP joint, there are several punctate foci of soft tissue gas (axial images 34-38). The little fi nger flexor tendon is intact. No tenosynovitis is seen. No discrete fluid collections are identified. There is superficial subcutaneous edema in this region. IMPRESSION: 1. Small foci of soft tissue gas along the volar aspect of the hand at the level of the little finger MCP articulation. This area of fluid and gas measures 1.4 cm on axial image 37. No underlying tendo n injury or tenosynovitis is appreciated. No tendon sheath gas is seen. There is mild surrounding sup erficial subcutaneous edema. 2. No acute osseous findings. Signer Name: Ty Parrish MD Signed: 09/17/2018 10:23 PM Workstation Name: [id number]
[2018-09-17] MEDS: LOVENOX SUB-Q SCH (23:47)
[2018-09-17] MEDS: PEPCID PO SCH (23:48)
[2018-09-18] MEDS: UNASYN/NS 3 GM/100 ML 3 GM/100 ML BAG IV SCH ×3 (00:01→11:53)
[2018-09-18] MEDS: NACL 0.45% 1000 ML 1,000 ML IV SCH (00:02)
[2018-09-18] MEDS: VANCOMYCIN/NS 1 GM/250 ML 1 GM/250 ML BAG IV SCH ×2 (02:51→06:26)
[2018-09-18 06:48] LABS: BUN/Creatinine Ratio 20; Blood Urea Nitrogen 10 mg/dL (9-20); Calcium 8.9 mg/dL (8.4-10.2); Hemolysis Index 8
[2018-09-18 07:09] LABS: Hemoglobin 12.1 gm/dl (11.8-15.2); Red Blood Count 3.75 M/mm3 (3.65-5.03)
[2018-09-18 07:11] LABS: Mean Corpuscular HGB Conc 36 % (32-34); Mean Corpuscular Volume 86 fl (84-94)
[2018-09-18 07:12] LABS: Platelet Count 228 K/mm3 (140-440); Red Cell Distribution Width 18.2 % (13.2-15.2)
[2018-09-18] MEDS: HABITROL TD SCH (11:51)
[2018-09-18] MEDS: PEPCID PO SCH (11:52)
[2018-09-18] MEDS: SODIUM CHLORIDE FLUSH SYRINGE 10 ML IV SCH (11:53)
--- NOTE | 2018-09-18 11:58 | Progress Note ---
Assessment and Plan Cultures: blood culture 09/17/2018 no growth so far Assessment: 37 y/o male with history of tobacco abuse admitted on 09/15/2018 due to a week history of left hand swelling and pain after a piece of glass got stuck his hand. 1) Sepsis: resolved. Etiology most likely left hand post-traumatic abscess 2) Left hand post-traumatic abscess: ? infectious tenosynovitis. S/p I&D performed. Significant amount of purulence drained from site. Abscess was packed. No cultures available. CT shows 1.6 cm soft tissue gas in the volar aspect of the 5th MCP joint. CRP 6.4. Recommendations: - follow-up blood cultures - wound cultures stat - pending - continue unasyn IV and vancomycin IV - Ok to d/c on augmentin 875 mg PO BID and doxycycline 100 mg PO BID total 10 days until 09/26/2018. - ID clinic f/u in 2-3 weeks I am signing off Yin Villasenor MD Infectious Diseases Boiler/Chiller Technician [facility] ([facility]) M [phone] O [phone] Subjective Date of service: 09/18/18 Principal diagnosis: left hand abscess Interval history: Patient feels better, hand pain is better, he is able flex and extend the hand better. No fever. Objective - Exam Narrative Exam: General appearance: Alert in NAD Eyes: anicteric sclerae, moist conjunctivae; no lid-lag; PERRLA HENT: Atraumatic; oropharynx clear with moist mucous membranes and no mucosal ulcerations/no oral thrush; normal hard and soft palate. Normal external ears. Neck: Trachea midline; supple, no thyromegaly or lymphadenopathy Lungs: CTA, with normal respiratory effort and no intercostal retractions CV: RRR no murmur Abdomen: Soft, non-tender; no masses or hepatosplenomegaly Extremities: marked edema of left hand with open wound packed and erythema, tulio a spread to forearm and elbow. Skin: Normal temperature, turgor and texture; no rash, ulcers or subcutaneous nodules Psych: Appropriate affect, alert and oriented to person, place and time. Neuro: alert and oriented x 3. Moving all extermities - Constitutional Vitals: Vital Signs Temp Pulse Resp BP Pulse Ox 97.7 F 68 18 120/78 97 09/18/18 00:11 09/18/18 00:11 09/18/18 00:11 09/18/18 00:11 09/18/18 00:11 Temperature -Last 24 Hours Temperature 97.7 F Temperature 98.0 F Temperature 98.8 F - Labs CBC & Chem 7: 09/18/18 05:43 09/18/18 05:43 Labs: Abnormal lab results 09/17/18 09/18/18 09/18/18 Range/Units 15:58 05:43 05:43 Hct 35.0 L (35.5-45.6) % MCHC 36 H (32-34) % RDW 18.2 H (13.2-15.2) % Creatinine (0.8-1.5) mg/dL C-Reactive Protein 6.40 H (0.00-1.30) mg/dL Vancomycin Trough 4.0 L (5.0-20.0) ug/mL 09/18/18 Range/Units 05:43 Hct (35.5-45.6) % MCHC (32-34) % RDW (13.2-15.2) % Creatinine 0.5 L (0.8-1.5) mg/dL C-Reactive Protein (0.00-1.30) mg/dL Vancomycin Trough (5.0-20.0) ug/mL
--- NOTE | 2018-09-18 13:00 | Discharge Summary ---
Providers - Providers Date of Admission: 09/15/18 14:17 Date of discharge: 09/18/18 Attending physician: DELFINO YANCEY 09/15/18 16:44 Consult to Dietitian/Nutrition [CONS] Routine Physician Instructions: Reason For Exam: Reason for Consult: poor appetite 09/15/18 20:41 Consult to Physician [CONS] Routine Comment: Consulting Provider: SHABBIR HAMMOND Physician Instructions: Reason For Exam: L hand abscess-S/p I and D 09/16/18 15:21 Consult to Physician [CONS] Routine Comment: Consulting Provider: MAHENDRA GUTIERREZ Physician Instructions: Reason For Exam: left hand cellulitis and abscess Consult to Wound/ET Nurse [CONS] Routine Reason For Exam: wound eval [facility] Hospital[facility] Condition: Stable Hospital course: Patient is a 37 yo man with a history of tobacco dependency and marijuana use who presents to [facility] ED with left hand swelling. 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 Patient states he picked the glass with nail clippers, afterward began having redness, swelling, pain in the hand. Patient denies fever. States he is right-handed. Reports tetanus immunization is up-to-date. I&D performed. Significant amount of purulence drained from site. Abscess was packed w/ iodoform gauze. Pt afebrile, however, WBCs of 29.5. Vancomycin and zosyn given. Pt admitted to hospitalist, Dr Serrano, for further management. Sepsis with Left hand cellulitis with abscess s/p I-n-D in ED: follow cultures, consult ID, no Hand surgeon available here and Ortho here does not handle and he has no insurance so the likely bower for transfer to Hand surgeon from the floor is almost impossible. Also, given the fact that no imaging was done. 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 - ID clinic f/u in 2-3 weeks Disposition: DC- TO HOME OR SELFCARE Time spent for discharge: 34 minutes Core Measure Documentation - Palliative Care Palliative Care/ Comfort Measures: Not Applicable - Core Measures Any of the following diagnoses?: none - VTE Discharge Requirements Deep Vein Thrombosis/Pulmonary Embolism Present on Admission: No Has pt received <5 days of overlap therapy or INR<2.0: No Anticoagulant overlap therapy prescribed at discharge: No Contraindication No Overlap Therapy order at DC: Not Indicated Exam - Physical Exam Narrative exam: Gen: WDWN, NAD, Awake, Alert, Orientated HEENT: NCAT, EOMI, PERRL, OP Clear Neck: supple, no adenopathy, no thyromegaly, no JVD CVS/Heart: RRR, normal S1S2, pulses present bilaterally Chest/Lungs: CTA B, Symmetrical chest expansion, good air entry bilaterally GI/Abdomen: soft, NTND, good bowel sounds, no guarding or rebound /Bladder: no suprapubic tenderness, no CVA or paraspinal tenderness Extermity/Skin: abnormal left palmar hand quarter size crater with packing below the pinky finger, which is edematous, red, warm, erythematous and tender, the erythema extend to base of fingers and dorsum of hand; callus-appearing lesion on palmar aspect just below the 5th digit with fluctuance and purulence underlying callus-like lesion drained MSK: FROM x 4 Neuro: CN 2-12 grossly intact, no new focal deficits Psych: calm - Constitutional Vitals: Temp Pulse Resp BP Pulse Ox 97.7 F 68 18 120/78 97 09/18/18 00:11 09/18/18 00:11 09/18/18 00:11 09/18/18 00:11 09/18/18 00:11 Plan Activity: other (no strenous activity until cleared by Dr. Hammond) Diet: low salt Wound: keep clean and dry, change dressing (daily), per your surgeon's advice Follow up with: SOPHIE PRESTON MD [Primary Care Provider] - 3-5 Days SHABBIR HAMMOND MD [Staff Physician] - 7 Days MAHENDRA GUTIERREZ MD [Staff Physician] - 7 Days Prescriptions: Amoxicillin/Potassium Clav [Augmentin 875-125 Tablet] 1 each PO BID #20 tablet Doxycycline Monohydrate [Doxycycline Monohydrate CAP] 100 mg PO BID #20 capsule Nicotine [Habitrol] 21 mg TD QDAY #15 patch oxyCODONE /ACETAMINOPHEN [Percocet 5/325 mg] 1 tab PO Q6H PRN #20 tablet PRN Reason: Pain , Severe (7-10)
[2018-09-18 13:53] VITALS: BP 134/82
[2018-09-18] MEDS ORDERED: VANCOMYCIN 1,250 MG in NACL 0.9% 250ML 250 ML IV SCH (14:00)
[2018-09-18] MEDS: PERCOCET 5/325 PO PRN (17:10)
== END 2018-09-18 20:33 | disposition home or self-care (01) | DRG 854 ==
LOC: ED 10:29 → 3A 14:17
PROVIDERS: ADMIT Internal Medicine; ATTEND Internal Medicine
PROC: 0J9K0ZZ Drainage of Left Hand Subcutaneous Tissue and Fascia, Open Approach (ICD-10-PCS; principal; 2018-09-15)
DX: A41.9 Sepsis, unspecified organism (principal); L03.114 Cellulitis of left upper limb; L02.512 Cutaneous abscess of left hand; F17.200 Nicotine dependence, unspecified, uncomplicated; R65.20 Severe sepsis without septic shock; Z71.6 Tobacco abuse counseling
CPT/HCPCS: 36415; 80048; 80053; 80202; 85007; 85025; 85027; 86140; 87040; 87116; 96365; 96366; 96375; 99406; G0378; J0295; J1170; J1650; J2270; J2543; J3370; J7030; J7040; J7050; Q9967